=== PATIENT | male | born 1950 | race Caucasian/White ===

== ENCOUNTER 2022-02-17 19:18 | Emergency (ER) | payer OTHER ==
[~2022-02-17] VITALS: Ht 170.2 cm; Wt 74.8 kg
[2022-02-17 19:24] VITALS: BP 153/99
--- NOTE | 2022-02-17 19:28 | NUR ---
TO LOBBY A/W BED AMBULATORY
--- NOTE | 2022-02-17 22:15 | NUR ---
LWBS PER ADMITTING
== END 2022-02-17 22:15 | disposition left against medical advice (07) ==
LOC: MED 19:18
DX: L03.031 Cellulitis of right toe (principal); Z53.21 Procedure and treatment not carried out due to patient leaving prior to being seen by health care provider